=== PATIENT | female | born 1935 | race Caucasian/White ===

== ENCOUNTER → 2020-11-26 | Outpatient (CLI) | payer MEDICARE, OTHER ==
[~2020-11-26] MED LIST: AMLODIPINE BESYL5 MG PO; ASPIR 8181 MG PO; ASPIRIN CHEWABL81 MG PO; BETAPACE80 MG PO; BRILINTA90 MG PO; ELIQUIS 2.5 MG2.5 MG PO; ELIQUIS 5 MG TAB5 MG PO; ELIQUIS2.5 MG PO; GLUCOPHAGE XR500 MG PO; GLUCOPHAGE500 MG PO; HYDROCHLOROTHIA25 MG PO; IMDUR ER TAB 3030 MG PO; LASIX40 MG PO; LOPRESSOR 25 MG25 MG PO; LOPRESSOR50 MG PO; MICROZIDE12.5 MG PO; NITROSTAT0.4 MG SL; NORVASC 5 MG TAB5 MG PO; NORVASC10 MG PO; PRILOSEC OTC20 MG PO; TRADJENTA5 MG PO
[2020-11-26 11:53] LABS: BUN/CREATININE RATIO 20 (0-10)
== END ==
LOC: LAB 10:14
PROVIDERS: Internal Medicine Cardiovascular Disease
DX: I48.91 Unspecified atrial fibrillation (principal); I25.10 Atherosclerotic heart disease of native coronary artery without angina pectoris; R60.9 Edema, unspecified; I10 Essential (primary) hypertension; R55 Syncope and collapse; I49.01 Ventricular fibrillation
CPT/HCPCS: 36415; 80048

== ENCOUNTER → 2020-12-14 | Outpatient (CLI) | payer MEDICARE, OTHER ==
[2020-12-14 10:09] LABS: BUN/CREATININE RATIO 17 (0-10)
== END ==
LOC: LAB 09:21
PROVIDERS: Physician Assistant
DX: I10 Essential (primary) hypertension (principal); R06.02 Shortness of breath; I47.2 Ventricular tachycardia; R55 Syncope and collapse
CPT/HCPCS: 36415; 80048

== ENCOUNTER → 2020-12-16 | Outpatient (CLI) | payer MEDICARE, OTHER | LOC: HEART 5 13:42 | DX: I48.91 Unspecified atrial fibrillation (principal); R55 Syncope and collapse; I27.20 Pulmonary hypertension, unspecified; I08.3 Combined rheumatic disorders of mitral, aortic and tricuspid valves; I11.9 Hypertensive heart disease without heart failure | CPT/HCPCS: 93306 ==

== ENCOUNTER → 2021-06-17 | Outpatient (CLI) | payer MEDICARE, OTHER | LOC: EXRD 08:08 | DX: I65.23 Occlusion and stenosis of bilateral carotid arteries (principal); R09.89 Other specified symptoms and signs involving the circulatory and respiratory systems | CPT/HCPCS: 93880 ==

== ENCOUNTER → 2021-10-06 | Outpatient (CLI) | payer MEDICARE, OTHER | LOC: CT 13:20 | DX: I65.21 Occlusion and stenosis of right carotid artery (principal); R09.89 Other specified symptoms and signs involving the circulatory and respiratory systems; R55 Syncope and collapse | CPT/HCPCS: 70498; Q9967 ==

== ENCOUNTER → 2022-03-30 | Outpatient (CLI) | payer MEDICARE, OTHER | LOC: HEART 5 10:49 | DX: R00.1 Bradycardia, unspecified (principal) ==